=== PATIENT | male | born 1950 | race Caucasian/White ===

== ENCOUNTER 2021-06-02 22:36 | Emergency (ER) | payer MEDICARE, OTHER ==
[~2021-06-02] VITALS: Ht 172.7 cm; Wt 84.4 kg
[2021-06-02 23:50] LABS: HEMATOCRIT 47.7 % (42-54); MEAN CORPUSCULAR HEMOGLOBIN 31.6 pg (27.0-33.0); MEAN CORPUSCULAR HGB CONC 33.5 g/dL (32.0-36.0); MEAN CORPUSCULAR VOLUME 94.3 fL (79-99); RED BLOOD CELL COUNT(AUTO) 5.06 MIL/uL (4.50-6.20); RED CELL DISTRIBUTION WIDTH 13.3 % (11.0-15.5); WHITE BLOOD COUNT (AUTO) 12.2 K/uL (4.8-10.8)
[2021-06-02 23:55] LABS: CREATININE 1.2 mg/dL (0.5-1.5); POTASSIUM 5.2 mmol/L (3.5-5.1)
[2021-06-03] LABS: ALBUMIN 3.7 g/dL (3.5-5.0); BILIRUBIN,TOTAL 0.7 mg/dL (0.2-1.0); TOTAL PROTEIN, SERUM 8.5 g/dL (6.0-8.3)
[2021-06-03] MEDS ORDERED: IPRATROPIUM/ALBUTEROL SULFATE 3 ML SOLUTION IH ONE (01:30)
[2021-06-03] MEDS ORDERED: DOXYCYCLINE HYCLATE 100 MG TABLET PO ONE (01:30)
[2021-06-03] MEDS ORDERED: DEXAMETHASONE 4 MG TAB PO ONE (01:30)
[2021-06-03 02:04] VITALS: BP 116/66
[2021-06-03] MEDS ORDERED: PRED20TA3 PO (02:06)
[2021-06-03] MEDS ORDERED: ALBU18HF7 IH (02:06)
[2021-06-03] MEDS ORDERED: DOXY-336 PO (02:06)
== END 2021-06-03 02:13 | disposition home or self-care (01) ==
LOC: EDH 22:36
DX: J44.1 Chronic obstructive pulmonary disease with (acute) exacerbation (principal); I10 Essential (primary) hypertension; Z20.822 Contact with and (suspected) exposure to COVID-19; F17.210 Nicotine dependence, cigarettes, uncomplicated; Z79.52 Long term (current) use of systemic steroids; Z79.899 Other long term (current) drug therapy; Z95.810 Presence of automatic (implantable) cardiac defibrillator
CPT/HCPCS: 36415; 71045; 80053; 83880; 84484; 85027; 87635; 87804 ×2; 93005; 94640; 99285; C9803; J8540